=== PATIENT | male | born 1990 | race Caucasian/White ===

== ENCOUNTER 2022-04-29 12:54 | Emergency (ER) | payer SELFPAY ==
--- NOTE | ~2022-04-29 | XR_ITS ---
EXAMINATION: XR chest 1V portable INDICATION: Asthma exacerbation TECHNIQUE: Portable AP chest at 1336 hours COMPARISON: None available FINDINGS: There are minimal airspace opacities of the lung bases. Small pleural effusions are present . There is no pneumothorax. The cardiomediastinal silhouette is normal. IMPRESSION: 1. Minimal airspace opacities of the lung bases, consistent with atelectasis versus pneumonia. 2. Small pleural effusions. Reviewed, dictated and finalized at location B. L INVESTIGATOR IMPRESSION: 1. Minimal airspace opacities of the lung bases, consistent with atelectasis ve rsus pneumonia. 2. Small pleural effusions.
[2022-04-29 12:55] VITALS: BP 119/78; PULSE 70; RESP 20; TEMP 36.9; O2SAT 100
[2022-04-29] MEDS: IPRATROPIUM 0.5 MG/ALBUTEROL SULFATE 2.5 MG AMPUL.NEB 3 ML INHALATION (13:27)
[2022-04-29 13:32] VITALS: PULSE 90; RESP 16; O2SAT 98
[2022-04-29 13:38] VITALS: PULSE 86; RESP 16
[2022-04-29] MEDS: MAGNESIUM SULF 2 GM/WATER 50ML 2 GM/50 ML BAG IVPB (13:44)
[2022-04-29] MEDS: methylPREDNISolone SOD SUCC 125 MG VIAL IV PUSH (13:44)
--- NOTE | 2022-04-29 14:11 | ED.GENADULT ---
HPI - General Adult General Chief complaint: Shortness of Breath/Dyspnea Stated complaint: short of breath; asthma Time Seen by Provider: 04/29/22 13:12 History of Present Illness HPI narrative: The patient is a 31-year-old male with history of asthma, but has been out of his albuterol ProAir inhaler for 2 weeks. He has also been out of his DuoNeb packets for some time. Other comorbidities include anxiety and depression. He has had multiple orthopedic procedures. He still smokes cigarettes but is trying to quit. He presents with a one-week history of worsening shortness of breath with wheezing asthma exacerbations. He had 4 asthma attacks in the past 24 hours. Does have a dry cough. He denies any fevers or chills or sweats or rhinorrhea or nasal congestion or sore throat or chest pain or abdominal pain or nausea vomiting or urinary symptoms. No fatigue or lethargy. Related Data Allergies Allergy/AdvReac Type Severity Reaction Status Date / Time No Known Allergies Allergy Verified 04/29/22 13:02 Review of Systems Review of Systems: All systems reviewed & are unremarkable except as noted in HPI and below Constitutional: Constitutional: Reports no additional constitutional complaints, Denies anorexia, Denies body ache(s), Denies chills, Denies excessive sweating, Denies fatigue, Denies fever(s), Denies frequent falls, Denies headache(s), Denies malaise and Denies poor appetite Eyes: Eyes: Reports no additional eye complaints, Denies blurry vision, Denies change in vision, Denies irritation, Denies itchy eyes and Denies photophobia ENT: Reports system reviewed and no additional complaints, except as documented, Reports Normal hearing present, Denies change in voice, Denies dysphagia, Denies vertigo, Denies dizziness, Denies ear discharge, Denies headache(s), Denies hearing loss, Denies hoarseness, Denies nasal congestion, Denies neck pain, Denies sinus pressure, Denies sore throat and Denies throat swelling Cardiovascular: Cardiovascular: Reports no additional cardiovascular complaints, Denies chest pain, Denies syncope, Denies rapid heart rate, Denies irregular heart rhythm, Denies leg edema, Denies dyspnea and Denies slow heart rate Respiratory: Respiratory: Reports no additional respiratory complaints, Reports cough, Reports dyspnea, Denies stridor and Reports wheezing Gastrointestinal: Gastrointestinal: Reports no additional gastrointestinal complaints, Denies abdominal pain, Denies melena, Denies hematochezia, Denies dysphagia, Denies diarrhea, Denies nausea and Denies vomiting Genitourinary: Genitourinary: Denies hematuria, Denies oliguria, Denies dysuria, Denies flank pain, Denies urinary frequency and Denies urinary urgency Musculoskeletal: Musculoskeletal: Reports no additional musculoskeletal complaints, Denies abnormal gait, Denies back pain, Denies myalgias, Denies arthralgias, Denies joint swelling, Denies limited range of motion, Denies muscle cramps, Denies muscle weakness, Denies neck pain and Denies numbness Integumentary/Breasts: Skin/Breast: Reports system reviewed and no additional complaints, except as docu, Denies breast pain, Denies change in pigmentation, Denies pruritus, Denies erythema and Denies wounds Neurologic: Reports system reviewed and no additional complaints, except as documented, Reports Normal hearing present, Denies Abnormal speech present, Denies abnormal gait, Denies confusion, Denies vertigo, Denies dizziness, Denies syncope, Denies frequent falls, Denies headache(s), Denies focal weakness, Denies numbness and Denies paresthesias Psychiatric: Psychiatric: Reports no additional psychiatric complaints and Denies confusion Endocrine: Endocrine: Reports no additional endocrine complaints, Denies cold intolerance, Denies excessive sweating, Denies fatigue and Denies heat intolerance Hematologic/Lymphatic: Hematologic/Lymphatic: Reports no additional hematologic/lymphatic complaints, Denies easy bleedin
[2022-04-29 14:35] VITALS: BP 121/65; PULSE 84; RESP 18; TEMP 36.6; O2SAT 99
== END 2022-04-29 14:40 | disposition home or self-care (01) ==
PROVIDERS: Emergency Provider Emergency Medicine
DX: J45.901 Unspecified asthma with (acute) exacerbation (principal); Z76.0 Encounter for issue of repeat prescription
CPT/HCPCS: 71045; 94640; 96365; 96375; 99284; J2930; J3475

== ENCOUNTER 2022-10-15 16:04 | Outpatient (CLI) | payer MEDICAID, SELFPAY ==
--- NOTE | ~2022-10-15 | XR_ITS ---
Bilateral Hands Technique: Bilateral PA, oblique, and lateral views, and ball-catcher's view were obtained. Clinical History: Pain, arthritis Findings: No acute fracture or dislocation is seen. There is an old, healed fracture deformity of the distal right fifth metacarpal neck. Joint spaces are preserved. Soft tissues are unremarkable. Impression: No acute abnormality. No evidence of inflammatory or degenerative arthropathy. Old, healed fracture deformity of the distal right fifth metacarpal neck. Reviewed, dictated and finalized at location M. Impression: No acute abnormality. No evidence of inflammatory or degenerative arthropathy. Old, healed fracture deformity of the distal right fifth metacarpal neck.
[2022-10-15 16:24] LABS: Appearance Urine Clear (Clear); Bilirubin Urine Negative (Negative); Blood Urine Negative (Negative); Color Urine Light Yellow (Yellow); Glucose Urine UA Negative (Negative); Ketones Urine Negative (Negative); Leukocyte Esterase Ur Negative (Negative); Nitrate Urine Negative (Negative); Protein Urine Negative (Negative); Urobilinogen Urine 0.2 mg/dL (0.2-1.0); pH Urine 7.5 (5.0-8.0)
[2022-10-15 16:25] LABS: Basophils Absolute Auto 0.05 K/mm3 (0.00-0.10); Basophils Percent Auto 0.4 % (0.0-1.0); Eosinophils Percent Auto 2.5 % (1.0-6.0); Hematocrit 42.5 % (40.0-54.0); Hemoglobin 14.5 g/dL (14.0-18.0); Immature Granulocyte Absolute 0.05 K/mm3 (0.00-0.00); Immature Granulocyte Percent A 0.4 % (0.0-0.0); Lymphocytes Absolute Auto 2.97 K/mm3 (1.10-4.50); Lymphocytes Percent Auto 24.8 % (18.0-42.0); Mean Corpuscular HGB Conc 34.1 g/dL (32.0-36.0); Mean Corpuscular Hemoglobin 31.9 pg (27.0-31.0); Mean Corpuscular Volume 93.4 fL (78.0-102.0); Mean Platelet Volume 10.5 fl (8.7-11.0); Monocytes Absolute Auto 0.74 K/mm3 (0.10-0.90); Monocytes Percent Auto 6.2 % (2.0-11.0); Neutrophils Absolute Auto 7.9 K/mm3 (1.7-7.2); Neutrophils Percent Auto 65.7 % (50.0-70.0); Platelet Count Result 210 K/mm3 (150-420); Red Blood Count 4.55 M/mm3 (4.70-6.10); Red Cell Distribution Width 12.2 % (11.6-14.4)
[2022-10-15 16:29] LABS: Add Urine Microscopic? NO
[2022-10-15 17:02] LABS: Alanine Aminotransferase 24 U/L (16-63); Albumin Level 4.5 g/dL (3.4-5.0); Alkaline Phosphatase 45 U/L (46-116); Anion Gap 11 mmol/L (8-16); Aspartate Amino Transferase < 10 U/L (15-37); Bilirubin,Total 0.3 mg/dL (0.00-1.00); Blood Urea Nitrogen 12 mg/dL (7-18); Calcium 9.3 mg/dL (8.5-10.1); Carbon Dioxide 25 mmol/L (21-32); Chloride 107 mmol/L (98-108); Estimated Glomerular Filt Rate > 60; Glucose 96 mg/dL (70-99); Osmolality Calculated 295 mOsm/kg (285-295); Potassium 4.2 mmol/L (3.5-5.1); Prostate Specific Antigen 0.2 ng/mL (< OR = 4.0); Sodium 143 mmol/L (136-145); Total Protein 7.3 g/dL (6.4-8.2)
[2022-10-15 17:09] LABS: Thyroid Stimulating Hormone Reflex 1.48 u/IU/mL (0.36-3.74)
== END 2022-10-15 16:05 | disposition home or self-care (01) ==
PROVIDERS: PCP Family Medicine; Visit Provider Family Medicine
DX: M79.642 Pain in left hand (principal); R35.0 Frequency of micturition; F41.9 Anxiety disorder, unspecified; F32.A Depression, unspecified; E11.9 Type 2 diabetes mellitus without complications; R35.1 Nocturia; J45.909 Unspecified asthma, uncomplicated; M79.641 Pain in right hand; Z87.81 Personal history of (healed) traumatic fracture
CPT/HCPCS: 36415; 73130; 80053; 81003; 84153; 84443; 85025; G0103

== ENCOUNTER 2022-11-28 11:00 | Outpatient (CLI) | payer OTHER, SELFPAY ==
--- NOTE | ~2022-11-28 | XR_ITS ---
Clinical Indication: Cough PA and lateral views of the chest: Comparison: 05/19/2022 Findings: The lungs are clear, without evidence of focal consolidation or pleural effusion. Cardiome diastinal silhouette is within normal limits. Bones and soft tissues are unremarkable. Impression: Normal chest. Reviewed, dictated and finalized at location . Impression: Normal chest.
== END 2022-11-28 11:01 | disposition home or self-care (01) ==
LOC: CHSIMG 11:03
PROVIDERS: PCP Family Medicine; Visit Provider Family Medicine
DX: R05.9 Cough, unspecified (principal)
CPT/HCPCS: 71046